=== PATIENT | female | born 1965 | race Hispanic/Latino ===

== ENCOUNTER → 2024-12-04 | Day surgery (SDC) | payer BC ==
[~2024-12-04] MED LIST: ACETAMINOPHEN 1000 MG/100 ML 100 ML IV ONE; ACETAMINOPHEN 1000 MG/100 ML IV PRN; ASPIRIN 325 MG TAB PO SCH; BUPIVACAINE/EPI 0.5% 30ML SDV-MPF INJ ONE; CELECOXIB 100 MG CAP PO SCH; DEXAMETHASONE SOD PHOS INJ 4 MG/ML SDV ONE; DIPHENHYDRAMINE HCL INJ 50 MG/ML VIAL IV PRN; DOCUSATE SODIUM 100 MG CAP PO PRN; FAMOTIDINE 20 MG/2 ML VIAL IV ONE; FENTANYL CITRATE/PF 100MCG/2 ML INJ ONE; HYDROCODONE/APAP 5MG-325MG TAB PO PRN; HYDROCODONE/APAP 7.5MG-325MG 1 EA TAB PO PRN; LACTATED RINGER'S 1,000 ML ONE; LIDOCAINE HCL 2% LOCAL INJ 5 ML SDV VIAL INJ ONE; LOSARTAN-HCTZ1 EACH PO; MECLIZINE HCL12.5 MG PO; MIDAZOLAM HCL 2 MG/2 ML VIAL ONE; OMEPRAZOLE40 MG PO; ONDANSETRON HCL INJ 2MG/ML 2ML 2 MG/ML VIAL IV PRN; ONDANSETRON HCL INJ 2MG/ML 2ML 2 MG/ML VIAL ONE; PROPOFOL IV EMULSION 10 MG/ML 20 ML VIAL ONE; ROPIVACAINE/EPI/CLONIDINE/KET 50 ML SYRINGE INJ ONE; SEVOFLURANE INHAL SOLN 250 ML PEN BTL ONE; SODIUM CHLORIDE 0.9% 1000ML 1,000 ML IV SCH; TRANEXAMIC ACID 1,000 MG/10 ML ML ONE
[2024-12-04] MEDS: LACTATED RINGER'S 1,000 ML ONE (08:41)
[2024-12-04] MEDS: CEFAZOLIN SODIUM 2 GM ONE (08:42)
[2024-12-04] MEDS: GABAPENTIN 300 MG CAP ONE (08:42)
[2024-12-04] MEDS: DEXAMETHASONE SOD PHOS 10 MG/1 ML VIAL ONE (08:42)
[2024-12-04] MEDS: CELECOXIB 200 MG CAP ONE (08:42)
[2024-12-04 14:30] VITALS: BP 135/79; PULSE 92; RESP 18; O2SAT 98
== END | disposition home or self-care (01) ==
LOC: OR 07:32
PROVIDERS: ATTEND Specialist
DX: M17.11 Unilateral primary osteoarthritis, right knee (principal); I10 Essential (primary) hypertension; K21.9 Gastro-esophageal reflux disease without esophagitis; Z01.812 Encounter for preprocedural laboratory examination; Z79.899 Other long term (current) drug therapy; Z68.30 Body mass index [BMI] 30.0-30.9, adult
CPT/HCPCS: 27447; 73560; 86850; 86900; 97110; 97116; 97161; C1713 ×2; C1776 ×2; J0131; J1100 ×2; J2003; J2250; J2405; J2704; J3010; J7121